=== PATIENT | male | born 1940 | race African-American/Black ===

== ENCOUNTER 2017-02-07 01:01 | Emergency (ER) | payer MEDICARE, OTHER ==
[~2017-02-07] VITALS: Ht 172.7 cm; Wt 81.8 kg
--- NOTE | 2017-02-07 00:51 | ED.REPORT ---
HPI-Chest Pain 40 and Over Date of Service Feb 07, 2017 ED Provider: Sourav Mi MD Pt is a 76 y/o male anticoagulated on Warfarin w/ a hx of PE and DVT on Warfarin , CHF, CAD s/p stenting x3, HTN, presenting to the ED via EMS c/o neck pain with radiation down the left arm onset today. The patient was at the gym exercising this morning but does not believe this is related to his pain. His neck pain is exacerbated by movement. Pt denies CP, nausea, vomiting, diaphoresis. He has had a prior left shoulder surgery about 50 years ago. He took aspirin and nitro without any relief. The patient experienced what he describes as indigestion earlier today and took Tums with good symptomatic relief. Nursing Notes Stated Complaint: CHEST PAIN Nursing Notes Reviewed: Yes Allergies: Coded Allergies: sertraline HCl (Verified Adverse Reaction, Intermediate, Diarrhea, 02/07/17 ) Scheduled Aspirin-Expunged Drug, Do Not Renew! (Aspirin-Expunged Drug, Do Not Renew!) 81 Mg Tab.chew 81 MG PO DAILY Atorvastatin-Expunged Drug, Do Not Renew! (Atorvastatin-Expunged Drug, Do Not Renew!) 40 Mg Tablet 40 MG PO HS Cholecalciferol (D3)-Expunged Drug, Do Not Re (Vitamin I-6-Iextcseu Drug, Do Not Renew!) 2,000 Unit Capsule 2,000 UNIT PO DAILY Doxazosin-Expunged Drug, Do Not Renew! (Doxazosin-Expunged Drug, Do Not Renew!) 4 Mg Tablet 4 MG PO DAILY Esomeprazole-Expunged Drug, Do Not Renew! (Esomeprazole-Expunged Drug, Do Not Renew!) 40 Mg Capsule.dr 40 MG PO BID FLUoxetine-Expunged Drug, Do not Renew! (Prozac-Expunged Drug, Do not Renew!) 10 Mg Tablet 10 MG PO DAILY Fish Oil/Dha/Epa-Expunged Drug, Do Not Renew! (Fish Oil 1,200 Mg-Expunged Drug, Do Not Renew) 1 Each Capsule 1 EACH PO BID Fluticasone-Expunged Drug, Do Not Renew! (Flonase-Expunged Drug, Do Not Renew!) 120 Sprays/16 Gm Aero 16 GM NS BID Furosemide-Expunged Drug, Do Not Renew! (Lasix-Expunged Drug, Do Not Renew!) 20 Mg Tablet 20 MG PO DAILY Hydrocod/APAP-Expunged, Do Not Renew! (VICODIN 5/500-Expunged Drug, Do Not Renew ) 1 Each Tablet 1-2 EACH PO q6 PRN take one to two tablets every six hours as needed for pain Latanoprost-Expunged Drug, Do Not Renew! (Latanoprost-Expunged Drug, Do Not Renew!) 15 Drop/Ml Drop 15 DROP OD HS one drop in each eye at bedtime Lisinopril-Expunged Drug, Do Not Renew! (Lisinopril-Expunged Drug, Do Not Renew! ) 10 Mg Tablet 10 MG PO BID Lorazepam-Expunged Drug, Do Not Renew! (Lorazepam-Expunged Drug, Do Not Renew!) 1 Mg Tab 1 MG PO TID PRN one half to one tablet three times daily as needed for anxiety Multivitamins W-Minerals/Lut (Centrum Silver Ultra Men's Tab) 1 Each Tablet 1 EACH PO DAILY Potassium Chl-Expunged Drug, Do Not Renew! (Q-Klh-Gslvazpi Drug, Do Not Renew!) 20 Meq Tab.prt.sr 40 MEQ PO BIDWM Triamcinolone Kalpesh-Expunged Drug, Do Not Renew (Triamcinolone Kalpesh-Expunged Drug, Do Not Renew) 454 Gm Cr 454 GM TP BID PRN Warfarin Sodium Inactive Drug Do Not Use (Coumadin Inactive Drug Do Not Use) 7.5 Mg Tablet 7.5 MG PO HS General Time Seen by MD: 01:10 Chief Complaint Chest pain Hx Obtained From: Patient, EMS Arrived By: Ambulance Sudden in Onset?: No Onset Occurred: 1 - 4 hours ago Symptom Duration: Since onset Location: : Neck Quality: Painful Radiation: : Arm left Severity: Current: Moderate Severity: Maximum: Moderate Similar Sx Previous: No Past Medical History Past Medical History 1. History of pulmonary embolism and DVT on Coumadin. 2. BPH. 3. CHF. 4. History of coronary artery disease status post stenting x3 with Dr. Griffin in [place]. 5. Glaucoma. 6. Depression and anxiety. 7. Hypertension Past Surgical History Left shoulder Cardiac stents x3 Smoking History Former Smoker Social History Alcohol Use: Denies alcohol use Drug Use: Denies drug use Ambulatory Status Independent Review of Systems Constitutional: Denies: Fever Respiratory: Denies: Shortness of breath Cardiovascular: Denies: Chest pain GI: Denies: Abdominal pain, Nausea, Vomiting Musculoskeletal: Reports: Extremity pain, Neck pain Skin: Denies Diaphoresis Complete sys rev & neg: except as marked. Physical Exam Initial Vital Signs Vital Signs (First) Date Time Temp Pulse Resp B/P Pulse Ox O2 Delivery O2 Flow Rate FiO2 02/07/17 01:05 36.4 49 13 141/68 100 Room Air Initial VS: Reviewed, Vital signs abnormal Head / Eyes: Atraumatic, Normocephalic ENT: Mucous membranes moist, Conjunctiva normal Extremities: Vascular intact, Neuro intact, No swelling Skin: Warm, Dry, No cyanosis Neurologic: Alert, Oriented, Nonfocal Psychiatric: Mood/affect normal, Behavior normal, Normal thought content General/Constitutional: Awake, Alert, No acute distress, Cooperative, Not toxic appearing Respiratory / Chest: Breath sounds NL, Breath sounds = bilat, No respiratory distress, No rales, No rhonchi, No wheezing Cardiovascular: Heart rate NL, Regular rhythm, Heart sounds NL, No gallop, No murmurs, No rubs, Cap refill not delayed, Peripheral circulation NL, Pulses = bilaterally Abdomen: Atraumatic, Soft, Non-tender, No guarding, No rebound, No distention Neck: Atraumatic, No meningismus, No midline vertebral tend Tender neck. Limited rotation secondary to pain. Rotation of the neck to the left reproduces radicular pain from the trapezius down the left arm Scar over the left shoulder from old surgery No mass found about the supraclavicular fossa or lung apices Interpretation & Diagnostics Lab Results Interpretation Result Diagram: 02/07/17 0255 02/07/17 0255 Test 02/07/17 02:55 White Blood Count 4.6th/mm3 (3.8-10.1) Red Blood Count 4.62mil/mm3 (4.40-5.80) Hemoglobin 12.4g/dL (13.8-17.2) Hematocrit 36.6% (41.0-50.0) Mean Corpuscular Volume 79.2fL (81-100) Mean Corpuscular Hemoglobin 26.8pg (27.0-35.0) Mean Corpuscular Hemoglobin Concent 33.9% (32.0-37.0) Red Cell Distribution Width 16.9% (12.3-15.4) Platelet Count 160bil/L (150-400) Neutrophils (%) (Auto) 61.4% (40-74) Lymphocytes (%) (Auto) 22.3% (14-46) Monocytes (%) (Auto) 11.1% (4-12) Eosinophils (%) (Auto) 4.6% (0-5) Basophils (%) (Auto) 0.4% (0-3) Prothrombin Time 18.5sec (8.1-12.5) Prothromb Time International Ratio 1.71ratio Activated Partial Thromboplast Time 33.3sec (22.8-33.0) Sodium Level 138mEq/L (134-144) Potassium Level 4.2mEq/L (3.5-5.2) Chloride Level 102mEq/L (97-108) Carbon Dioxide Level 21mmol/L (18-29) Blood Urea Nitrogen 29mg/dL (8-27) Creatinine 1.55mg/dL (0.76-1.27) Estimat Glomerular Filtration Rate 47mL/min (>59) Glucose Level 105mg/dL (60-99) Calcium Level 9.2mg/dL (8.5-10.1) Magnesium Level 1.9mg/dL (1.6-2.6) Total Bilirubin 0.3mg/dL (0.0-1.2) Aspartate Amino Transf (AST/SGOT) 27U/L (0-50) Alanine Aminotransferase (ALT/SGPT) 21U/L (0-44) Alkaline Phosphatase 58U/L (25-160) Troponin T 0.010ug/L (0.0-0.011) Pro-B-Type Natriuretic Peptide 473.7pg/mL (0-486) Total Protein 7.0g/dL (6.4-8.4) Albumin 3.9g/dL (3.4-5.0) Hold Allen Top Tube Received (Received) ECG Interpretation ECG Interpretation: Sinus bradycardia rate 48 Prolonged [place] interval - [place] 254 Posterior QRS axis No acute ST or T changes Time: 01:10 Interpreted by: ED physician X-Ray Chest Interpretation Chest Xray Interpretation: Soft tissue mass projecting over RUL not much changed in size from prior in 2010 View: Portable, 1 view Interpretation / Wet Read by: Wet read ED physician NL X-Ray Chest Findings: No infiltrate, No acute disease Re-Eval/Medical Decision Med Decision/Clinical Course 76-year-old with known coronary disease presents out of concern for symptoms in his left neck and shoulder done was arm. He has no chest symptoms at all, and has easily elicitable radicular symptoms with rotation of his neck and palpation over the trapezius. No change in his basic cardiogram and no other indications of acute coronary ischemia. Improved here after single dose Decadron and Toradol. Home with soft collar intermittent low dose ibuprofen. Follow up with PCP. Source of Hx: Old records, EMS Time of Eval: 04:12 Re-Evaluation/Progress Note: Pt rechecked. No neck mass palpated. Informed pt of plan for discharge. Pt understands and agrees with plan for discharge. F/U instructions and RTER warnings given. All questions addressed. Counseled Regarding: Diagnosis, Need for follow-up, When/why to return to ED Discharge & Departure Primary Impression: Cervical radiculopathy Disposition: Home Discharge Condition All VS Reviewed: Yes Condition: Stable Patient Instructions: Cervical Radiculopathy (ED) Additional Instructions: Follow-up with your doctor in the office. Wear a soft collar to sleep for the next 5-7 nights. Ibuprofen or Naprosyn as needed for pain. Return if any additional issues, particularly chest pain, shortness of breath, or other new symptoms of concern. Referrals: Ace Pereira MD (PCP) Scribe Attestation Portions of this note were transcribed by David Arroyo. I, Dr. Mi personally performed the history, physical exam and medical decision-making; I reviewed and confirmed the accuracy of the information in the transcribed note. copies to: Ace Pereira MD, Christopher W MD Feb 07, 2017 00:51 DAVID ARROYO Feb 07, 2017 01:12
[~2017-02-07 01:01] MED LIST: ASPI81TA3 PO; CHOL200020 PO; DOXA4TAB2 PO; FISH1CAP15 PO; FLONASE NS; FLUO10TA PO; FURO20TA PO; HYDR1TAB69 PO; LIP40 PO; LISI10TA PO; LORA-303 PO; LTN005OP2 OD; MULT-896 PO; NEX40C PO; POTA20TA16 PO; TRIA TP; WARF7.5T2 PO
[2017-02-07 01:05] VITALS: BP 141/68; PULSE 49; RESP 13; O2SAT 100
[2017-02-07] MEDS ORDERED: Ketorolac 15 mg/mL Inj IVPUSH ONE (01:35)
[2017-02-07] MEDS ORDERED: Dexamethasone Inj 10 MG in 0.9% Sodium Chloride-Pha MIX 50 ML IV ONE (01:35)
[2017-02-07 03:01] LABS: BASOPHILS % (AUTO) 0.4 % (0-3); EOSINOPHILS % (AUTO) 4.6 % (0-5); MONOCYTES % (AUTO) 11.1 % (4-12); Mean Corpuscular Hemoglobin 26.8 pg (27.0-35.0); Mean Corpuscular Volume 79.2 fL (81-100); NEUTROPHILS % (AUTO) 61.4 % (40-74); Platelet Count 160 bil/L (150-400)
[2017-02-07 03:17] LABS: INR 1.71 ratio
[2017-02-07 03:48] LABS: Magnesium 1.9 mg/dL (1.6-2.6)
[2017-02-07 05:15] VITALS: BP 161/80; PULSE 53; RESP 20; O2SAT 99
--- NOTE | 2017-02-07 09:59 | DRSVH ---
PROCEDURE: X-RAY CHEST ONE VIEW, PORTABLE ([id number]) INDICATIONS: ARM PAIN, CARDIAC HISTORY TECHNIQUE: One view of the chest was acquired. COMPARISON: Located Within [facility], CT, SOFT TISSUE NECK W CONTRAST, 04/23/2011, 10:30. [facility], CR, CHEST 1VW (PORTABLE), 03/29/2011, 3:24. 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 The contour abnorm ality on the right with deviation of the trachea leftward has worsened, and no surgical clips are see n in that area. Lungs and pleura: No pleural effusions or pneumothorax. Lungs are clear. Mediastinum: Mediastinal contours appear normal except for the increased mass effect from a large th yroid mass on the right, with prior presumed left thyroidectomy given the pattern of surgical clips n oted above. Heart size is normal. Bones and chest wall: No suspicious bony lesions. Overlying soft tissues appear unremarkable. IMPRESSION: No source of pain found. Prior left thyroidectomy. Prior CT scanning from 2010 showing what appears to be multinodular goitrous enlargement with subsequent left thyroid surgery. The right thyroid gland continues to enlarge and deviates the tracheal air column leftward to a great er degree than previously. The thyroid is surgical consultation likely is warranted given this appea erma and private branch exchange operator time. Dictated by: Mat Mancini M.D. on 02/07/2017 at 9:53 Approved by: Mat Mancini M.D. on 02/07/2017 at 9:57
== END 2017-02-07 04:48 | disposition home or self-care (01) ==
LOC: SED 01:01
DX: M54.12 Radiculopathy, cervical region (principal); I25.2 Old myocardial infarction; I50.9 Heart failure, unspecified; I10 Essential (primary) hypertension; I25.10 Atherosclerotic heart disease of native coronary artery without angina pectoris; F41.9 Anxiety disorder, unspecified; Z87.448 Personal history of other diseases of urinary system; Z87.891 Personal history of nicotine dependence; Z86.711 Personal history of pulmonary embolism; Z95.5 Presence of coronary angioplasty implant and graft; Z86.718 Personal history of other venous thrombosis and embolism; Z79.01 Long term (current) use of anticoagulants; Z79.82 Long term (current) use of aspirin; Z88.8 Allergy status to other drugs, medicaments and biological substances
CPT/HCPCS: 36415; 71010; 80053; 83735; 83880; 84484; 85025; 85610; 85730; 93005; 96374; 96375; 99285; J1100; J1885